=== PATIENT | male | born 1965 | race Two or more races ===

== ENCOUNTER 2017-01-10 01:08 | Emergency (ER) | payer MEDICAID ==
--- NOTE | 2017-01-10 02:25 | ED Physician Chart ---
Chief Complaint/HPI - Patient Information Date Seen:: 01/10/17 Time Seen:: 01:20 Chief Complaint:: Nausea/vomiting since about 0015 today History of Present Illness:: Brought in by private auto for the above reason. Pt has had recurrent nausea/ vomiting x 3 this morning with vomitus consists of gastric content after eating. Others who ate the same food are fine without N/V/D. No hematemesis. Last BM at about 2 am today that was normal in color/consistency. No hematochezia or melena. No fever or lightheadedness. Pt denies oral intake of any contaminated food or liquid. No recent travel or antibiotic use. Pt denies any abdominal pain or discomfort. Allergies:: Allergies Allergy/AdvReac Type Severity Reaction Status Date / Time No Known Allergies Allergy Verified 01/10/17 01:55 Vitals:: Vital Signs - 8 hr 01/10/17 01:24 Temp 98.3 F HR 115 RR 20 BP 141/78 O2 Sat % 97 Historian:: Patient Family MD/PCP:: Dr. Elmore LMP:: N/A Review:: Nurse's Note Reviewed Review of Systems - Review of Systems General/Constitutional: No fever, No chills, No weight loss, No weakness, No diaphoresis, No edema, No loss of appetite Skin: No skin lesions, No rash, No bruising Head: No headache, No light-headedness Eyes: No loss of vision, No pain, No diplopia ENT: No earache, No nasal drainage, No sore throat, No tinnitus Neck: No neck pain, No swelling, No stiffness Cardio Vascular: No chest pain, No palpitations, No edema Pulmonary: No SOB, No cough, No wheezing GI: Nausea, Vomiting, No diarrhea, No pain, No melena, No hematochezia, No hematemesis G/U: No dysuria, No frequency, No hematuria Musculoskeletal: No bone or joint pain, No back pain, No muscle pain Endocrine: No polyuria, No polydipsia Psychiatric: No prior psych history Hematopoietic: No bruising, No lymphadenopathy Allergic/Immuno: No urticaria, No angioedema Neurological: No syncope, No focal symptoms, No weakness, No paresthesia, No headache, No seizure, No dizziness, No confusion Past Medical History - Past Medical History Past Medical History: No significant medical hx Family History: Diabetes Melitus (P uncle) Social History: Non Smoker, No Alcohol, No Drug Use, , Employed, Other ( lives with his .) 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 Head: Atraumatic Eyes: Lids, conjuctiva normal, PERRL, EOMI Skin: Nl inspection, No rash, No skin lesions, No ecchymosis, No lymphadenopathy ENMT: External ears, nose nl, Nasal exam nl, Lips, teeth, gums nl, Oropharynx nl Other ENMT comments:: Mucous membrane is slightly dry. Neck: Nontender, Full ROM w/o pain, No JVD, No nuchal rigidity, No mass, No stridor Respiratory: Nl effort/Exclusion, Clear to Auscultation, No Wheeze/Rhonchi/Rales Cardio Vascular: No murmur, gallop, rubs Other Cardio Vascular comments:: Regular rhythm with mild tachycardia. HR 103. GI: No tenderness/rebounding/guarding, No organomegaly, No hernia, Normal BS's, Nondistended, No mass/bruits, No McBurney tenderness Other GI comments:: Abdomen is obese but soft. Extremities: No tenderness or effusion, Full ROM, normal strength in all extremities, No edema, Normal digits & nails Neuro/Psych: Alert/oriented (oriented x 3), Normal motor strength, Judgement/ insight normal, Mood normal, Normal gait, No focal deficits Labs/Radiology/EKG Results - Lab Results Results: Laboratory Tests 01/10/17 01/10/17 01/10/17 02:34 02:34 02:34 WBC 8.2 RBC 4.96 Hgb 14.1 Hct 41.8 MCV 84.4 MCH 28.5 MCHC Differential 33.7 RDW 13.4 Plt Count 217 MPV 7.9 Neutrophils % 69.1 Lymphocytes % 23.7 Monocytes % 5.4 Eosinophils % 1.1 Basophils % 0.7 PT 10.4 INR 1.00 PTT (Actin FS) 24.9 L Sodium 135 L Potassium 3.2 L Chloride 103 Carbon Dioxide 27.8 Anion Gap 7.4 BUN 15 Creatinine 1.1 Est GFR ( Amer) > 60.0 Est GFR (Non-Af Amer) > 60.0 BUN/Creatinine Ratio 13.6 Glucose 117 H Calcium 9.2 Total Bilirubin 0.6 AST 12 L ALT 17 Alkaline Phosphatase 70 Total Protein 6.8 Albumin 4.2 Globulin 2.6 Albumin/Globulin Ratio 1.6 ED Septic Shock - . Is Septic Shock (SBP<90, OR Lactate>4 mmol\L) present?: No - <6hrs of presentation: Vital Signs: Vital Signs - 8 hr 01/10/17 01:24 Temp 98.3 F HR 115 RR 20 BP 141/78 O2 Sat % 97 Reassessment (Disposition) - Reassessment Reassessment:: 0320 Pt feels much better. No recurrent N/V. No diarrhea. No lightheadedness or abdominal pain. Lab results just became available. Lab findings have been reviewed with pt. Pt requests to go home now and does not want further observation/management in hospital. Aftercare instructions have been given. Reassessment Condition:: Improved - Diagnosis Diagnosis:: Food intolerance with transient nausea/vomiting and mild dehydration, resolved and currently asymptomatic. Mild hypokalemia, stable. - Aftercare/Follow up Instructions Notes:: Bedrest for today. Clear liquid diet for now. Advance diet as tolerated starting this evening. Increase oral intake of potassium rich foodstuffs such as banana, etc. Nausea/vomiting/diarrhea instructions given. F/U with PCP Dr. Elmore in one day for recheck with repeat lab studies: BMP. Return to ER immediately if condition worsens or if any further questions/ problems. Medication Prescribed:: None - Patient Disposition Discharge/Transfer:: Home Time:: 03:25 Condition at Disposition:: Stable, Improved ED Discharge Plan - Patient Disposition Instructions: Indigestion, [id number], Clear Liquid Diet, [id number] Additional Instructions: follow up with your primary medical doctor if symptoms persist. take clear liquid diet for the next 8-10 hours
[2017-01-10] MEDS ORDERED: Sodium Chloride 0.9% 1,000 ML IV ONE (02:27)
[2017-01-10 02:42] LABS: % BASOPHILS 0.7 % (0.0-2.0); % EOSINOPHILS 1.1 % (0.0-5.0); % LYMPHOCYTES 23.7 % (20.0-50.0); % MONOCYTES 5.4 % (2.0-10.0); % NEUTROPHILS 69.1 % (40.0-80.0); HEMATOCRIT 41.8 % (39.0-49.0); HEMOGLOBIN 14.1 gm/dL (13.2-17.3); MEAN CELL VOLUME 84.4 fl (80-99); MEAN CORPUSCULAR HEMOGLOBIN 28.5 pg (26.0-30.0); MEAN CORPUSCULAR HGB CONC 33.7 pg (28.0-36.0); MEAN PLATELET VOLUME 7.9 fl; NEUTROPHILE ABSOLUTE 5.7 Th/cmm (1.8-8.0); PLATELET COUNT 217 Th/cmm (150-400); RED BLOOD COUNT 4.96 Mil/cmm (4.30-5.70); RED CELL DISTRIBUTION WIDTH 13.4 % (11.5-20.0); WHITE BLOOD COUNT 8.2 Th/cmm (4.8-10.8)
[2017-01-10 02:56] LABS: ALB/GLOB RATIO 1.6 (1.0-1.8); ALKALINE PHOSPHATASE 70 U/L (34-104); ANION GAP 7.4 (7.0-16.0); BILIRUBIN,TOTAL 0.6 mg/dL (0.3-1.0); BUN - UREA NITROGEN 15 mg/dL (7-25); BUN/CREATININE RATIO 13.6; CALCIUM SERUM 9.2 mg/dL (8.6-10.3); CARBON DIOXIDE 27.8 mEq/L (21.0-31.0); CHLORIDE 103 mEq/L (98-107); CREATININE - SERUM 1.1 mg/dL (0.7-1.3); GLUCOSE 117 mg/dL (70-105); POTASSIUM SERUM 3.2 mEq/L (3.5-5.1); SGOT 12 U/L (13-39); SGPT/ALT 17 U/L (7-52); SODIUM SERUM 135 mEq/L (136-145)
[2017-01-10 02:57] LABS: PROTHROMBIN TIME (TEST) 10.4 SECONDS (9.5-11.5)
[2017-01-10] MEDS ORDERED: Potassium Chloride 20 mEq ER Tab PO ONE ×2 (03:13→03:15)
== END 2017-01-10 03:15 | disposition home or self-care (01) ==
LOC: ER 01:08
DX: R11.2 Nausea with vomiting, unspecified (principal); E87.6 Hypokalemia
CPT/HCPCS: 36415-UA; 80053-TC; 85025-TC; 85610-TC; J7030; Z7502